=== PATIENT | male | born 1995 | race Caucasian/White ===

== ENCOUNTER 2023-03-20 16:55 | Emergency (ER) | payer OTHER ==
[~2023-03-20] VITALS: Ht 165.1 cm; Wt 86.2 kg
--- NOTE | 2023-03-20 16:55 | NUR ---
BUCK[facility] ALS TO ER BED 10
[2023-03-20 17:00] VITALS: BP 157/95
[2023-03-20] MEDS ORDERED: NACL 0.9% 1,000 ML IV ONE (17:10)
[2023-03-20 17:11] LABS: BASOPHILS # (AUTO) 0.1 K/uL (0.00-0.22); BASOPHILS % (AUTO) 0.9 % (0.0-2.0); EOSINOPHILS # (AUTO) 0.2 K/uL (0-0.4); EOSINOPHILS % (AUTO) 1.4 % (0.0-4.0); HEMATOCRIT 43.3 % (36-52); LYMPHOCYTES # (AUTO) 2.9 K/uL (2.0-11.5); LYMPHOCYTES % (AUTO) 26.2 % (20.5-51.1); MEAN CORPUSCULAR HEMOGLOBIN 26 pg (27-31); MEAN CORPUSCULAR HGB CONC 32 g/dL (33-37); MEAN CORPUSCULAR VOLUME 79.1 fL (80-94); MONOCYTES # (AUTO) 0.6 K/uL (0.8-1.0); MONOCYTES % (AUTO) 5.1 % (1.7-9.3); NEUTROPHILS # (AUTO) 7.4 K/uL (1.8-7.7); NEUTROPHILS % (AUTO) 66.4 % (42.2-75.2); PLATELET COUNT (AUTO) 479 K/uL (140-450); RED BLOOD CELL COUNT(AUTO) 5.47 MIL/uL (4.20-6.10); RED CELL DISTRIBUTION WIDTH 15.1 % (11.6-13.7); WHITE BLOOD COUNT (AUTO) 11.1 K/uL (4.8-10.8)
[2023-03-20 17:44] LABS: ACETAMINOPHEN < 0.5 ug/ml (10-30); ALBUMIN 3.7 g/dL (3.4-5.0); ANION GAP 20.9 (8-16); ASPARTATE AMINOTRANSFERASE 19 U/L (15-37); CHLORIDE 99 mmol/L (98-107); CREATININE 1.4 mg/dL (0.6-1.3); GFR ARICAN-AMERICAN 79 mL/min (>90); GLUCOSE 226 mg/dL (74-106); POTASSIUM 3.9 mmol/L (3.5-5.1); SALICYLATE < 2.8 mg/dL (2.8-20.0); SODIUM SERUM 136 mmol/L (136-145); TOTAL BILIRUBIN 0.2 mg/dL (0.0-1.0); UREA NITROGEN, BLOOD 20 mg/dL (7-18)
--- NOTE | 2023-03-20 18:06 | NUR ---
awake alert x 4, attempted to void per urinal, no urge per pt
[2023-03-20 19:03] VITALS: BP 132/76
--- NOTE | 2023-03-20 19:05 | NUR ---
Patient discharged with v/s stable. Written and verbal after care instructions given and explained. Patient verbalized understanding. Ambulatory with family to car. All questions addressed prior to discharge. Advised to follow up with PMD.
== END 2023-03-20 19:03 | disposition home or self-care (01) ==
LOC: MED 16:55
DX: R56.9 Unspecified convulsions (principal); F14.90 Cocaine use, unspecified, uncomplicated; N17.9 Acute kidney failure, unspecified; E87.20 Acidosis, unspecified; Z20.822 Contact with and (suspected) exposure to COVID-19
CPT/HCPCS: 36415; 70450; 71045; 80053; 85025; 87426; 93005; 96360; 99285; G0480; G0482; J7030